=== PATIENT | female | born 1970 | race Caucasian/White ===

== ENCOUNTER 2025-08-25 09:29 | Outpatient (CLI) | payer OTHER | END 2025-08-25 09:30 | disposition home or self-care (01) | LOC: CSHSLEEP 09:29 | PROVIDERS: ATTEND Internal Medicine | DX: G47.33 Obstructive sleep apnea (adult) (pediatric) (principal); R06.83 Snoring; G47.31 Primary central sleep apnea | CPT/HCPCS: 95811 ==